=== PATIENT | male | born 1995 | race Caucasian/White ===

== ENCOUNTER 2017-03-28 01:09 | Emergency (ER) | payer OTHER ==
[~2017-03-28] VITALS: Ht 177.8 cm; Wt 83.9 kg
[~2017-03-28 01:09] MED LIST: HYDRTAB32 PO
[2017-03-28 01:14] VITALS: TEMP 36.8; Ht 177.8 cm; Wt 83.9 kg
--- NOTE | 2017-03-28 01:33 | EMERGENCY ROOM VISIT NOTE ---
History Report prepared by Dante: Abilio Calderon Under the Supervision of: Dr. Nahum Chávez M.D. First contact with patient: 01:17 Chief Complaint: ABDOMINAL PAIN Stated Complaint: PAINFUL ABDOMEN History of Present Illness The patient is a 21 year old male who presents to the Emergency Room with complaints of constant right abdominal pain beginning 3 days ago. The patient states that he was working out 3 days ago and "felt a little pop." He notes that later that night he began feeling bloated and was unable to have a bowel movement. He reports that he took a laxative 2 days ago. The patient states that he had a bowel movement following the laxative, but that the pain did not go away. He notes that his pain occasionally worsens when he stands up. He denies any CP, SOB, blood in his stool, fever, back pain, and urinary symptoms. Source of History: patient Onset: 3 days ago Position: abdomen (right) Timing: constant Modifying Factors (Worsening): other (standing up) Associated Symptoms: No fevers, No chest pain, No SOB, No back pain, No urinary symptoms Note: He denies any blood in his stool. Review of Systems See HPI for pertinent positives & negatives. A total of 10 systems reviewed and were otherwise negative. Past Medical & Surgical Medical Problems: (1) Seizure disorder (2) [place] Teeth Removal Family History Diabetes mellitus Hypertension Social History Smoking Status: Never Smoker Marital Status: single Housing Status: lives with roommate Occupation Status: student Current/Historical Medications No Active Prescriptions or Reported Meds Allergies Coded Allergies: Penicillins (Unverified Allergy, Mild, 03/28/17) Physical Exam Vital Signs Date Time Temp Pulse Resp B/P (MAP) Pulse Ox O2 Delivery O2 Flow Rate FiO2 03/28/17 03:40 96 16 129/70 97 Room Air 03/28/17 02:47 100 18 149/72 99 Room Air 03/28/17 01:14 36.8 105 18 133/78 97 Room Air Physical Exam GENERAL: Patient is uncomfortable appearing and in mild distress. HEENT: No acute trauma, normocephalic atraumatic, mucous membranes moist, no nasal congestion, no scleral icterus. NECK: No stridor, no adenopathy, no meningismus, trachea is midline. LUNGS: No dyspnea. Clear to auscultation and equal bilaterally. No wheeze, no rhonchi. HEART: Regular rate and rhythm. No murmurs, rubs, gallops appreciated. ABDOMEN: Soft, bowel sounds positive, no masses appreciated, no peritonitis, mild RLQ tenderness. BACK: No midline tenderness, no CVA tenderness EXTREMITIES: Normal motion all extremities, no cyanosis, no edema. NEUROLOGIC: Alert and oriented, no acute motor or sensory deficits, no focal weakness, cranial nerves grossly intact. SKIN: No rash, no jaundice, no diaphoresis. Medical Decision & Procedures ER Provider Diagnostic Interpretation: Radiology results and stated below per my review and radiologist interpretation: CT ABDOMEN & PELVIS With Contrast: Normal appendix. No free air or free fluid or fluid collections. No bowel obstruction. No radiopaque gallstones. No pancreatitis or pyelonephritis. No hydronephrosis. Normal caliber abdominal aorta. Radiologist: Madeleine Amaor M.D. US APPENDIX: The appendix is not visualized and appendicitis cannot be excluded based on this exam. Radiologist: Madeleine Amaro M.D. Laboratory Results 03/28/17 01:38 Red Blood Count 4.92, Mean Corpuscular Volume 87.4, Mean Corpuscular Hemoglobin 31.7, Mean Corpuscular Hemoglobin Concent 36.3, Mean Platelet Volume 10.0, Neutrophils (%) (Auto) 56.5, Lymphocytes (%) (Auto) 33.9, Monocytes (%) (Auto) 7.7, Eosinophils (%) (Auto) 1.3, Basophils (%) (Auto) 0.3, Neutrophils # (Auto) 6.28, Lymphocytes # (Auto) 3.77, Monocytes # (Auto) 0.86, Eosinophils # (Auto) 0.14, Basophils # (Auto) 0.03 03/28/17 01:38 Test 03/28/17 01:38 03/28/17 01:50 White Blood Count 11.11 K/uL (4.8-10.8) Red Blood Count 4.92 M/uL (4.7-6.1) Hemoglobin 15.6 g/dL (14.0-18.0) Hematocrit 43.0 % (42-52) Mean Corpuscular Volume 87.4 fL (80-100) Mean Corpuscular Hemoglobin 31.7 pg (25-34) Mean Corpuscular Hemoglobin Concent 36.3 g/dl (32-36) Platelet Count 369 K/uL (130-400) Mean Platelet Volume 10.0 fL (7.4-10.4) Neutrophils (%) (Auto) 56.5 % Lymphocytes (%) (Auto) 33.9 % Monocytes (%) (Auto) 7.7 % Eosinophils (%) (Auto) 1.3 % Basophils (%) (Auto) 0.3 % Neutrophils # (Auto) 6.28 K/uL (1.4-6.5) Lymphocytes # (Auto) 3.77 K/uL (1.2-3.4) Monocytes # (Auto) 0.86 K/uL (0.11-0.59) Eosinophils # (Auto) 0.14 K/uL (0-0.5) Basophils # (Auto) 0.03 K/uL (0-0.2) RDW Standard Deviation 39.1 fL (36.4-46.3) RDW Coefficient of Variation 12.2 % (11.5-14.5) Immature Granulocyte % (Auto) 0.3 % Immature Granulocyte # (Auto) 0.03 K/uL (0.00-0.02) Anion Gap 9.0 mmol/L (3-11) Est Creatinine Clear Calc Drug Dose 126.7 ml/min Estimated GFR () 131.4 Estimated GFR (Non- 113.3 BUN/Creatinine Ratio 18.4 (10-20) Calcium Level 10.0 mg/dl (8.5-10.1) Total Bilirubin 0.7 mg/dl (0.2-1) Direct Bilirubin 0.2 mg/dl (0-0.2) Aspartate Amino Transf (AST/SGOT) 57 U/L (15-37) Alanine Aminotransferase (ALT/SGPT) 43 U/L (12-78) Alkaline Phosphatase 79 U/L (45-117) Total Protein 8.3 gm/dl (6.4-8.2) Albumin 4.9 gm/dl (3.4-5.0) Lipase 145 U/L (73-393) Urine Color YELLOW Urine Appearance CLEAR (CLEAR) Urine pH 5.5 (4.5-7.5) Urine Specific [place] 1.024 (1.000-1.030) Urine Protein NEG (NEG) Urine Glucose (UA) NEG (NEG) Urine Ketones NEG (NEG) Urine Occult Blood NEG (NEG) Urine Nitrite NEG (NEG) Urine Bilirubin NEG (NEG) Urine Urobilinogen NEG (NEG) Urine Leukocyte Esterase NEG (NEG) Urine WBC (Auto) 0 /hpf (0-5) Urine RBC (Auto) 0-4 /hpf (0-4) Urine Hyaline Casts (Auto) 0 /lpf (0-5) Urine Epithelial Cells (Auto) 0-5 /lpf (0-5) Urine Bacteria (Auto) NEG (NEG) Laboratory results as reviewed by me. ED Course 0117: The patient was evaluated in room B10. A complete history and physical exam was performed. 0222: I reevaluated and updated the patient. We discussed the fact that we cannot find his appendix on US. We discussed the pros and cods of CT. He is agreeable to CT scan at this time. 0343: Reevaluated the patient. Discussed results and discharge instructions. He verbalized understanding and agreement. The patient is ready for discharge. Medical Decision Differential: Appendicitis, , MSK, Diverticulitis, UTI, Renal Colic, Bowel Obstruction, Aortic Pathology, amongst other pathologies entertained. Anxious 21 yr old male with RLQ pain last 3-4 days. Started shortly after lifting but no clear if this was onset. Labs with mild leukocytosis. Is quite TTP over RLQ without peritonitis. With unremarkable US felt CT necessary at this time to rule out appendicitis. CT unremarkable fortunately. Discussed multiple different things with patient, including no working out next week at which point he admits he was doing sit ups yesterday even though having pain. Advised against further sit ups until healed. Suspect this is MSK injury. Reviewed symptoms requiring RTED. Blood Pressure Screening Patient's blood pressure: Elevated blood pressure Blood pressure disposition: Elevated BP felt to be situational Impression Primary Impression: Right lower quadrant abdominal pain Scribe Attestation The scribe's documentation has been prepared under my direction and personally reviewed by me in its entirety. I confirm that the note above accurately reflects all work, treatment, procedures, and medical decision making performed by me. Departure Information Dispostion Home / Self-Care Prescriptions No Active Prescriptions or Reported Meds Referrals No Doctor, Assigned (PCP) Forms HOME CARE DOCUMENTATION FORM, IMPORTANT VISIT INFORMATION Patient Instructions My [facility] Additional Instructions It is likely your pain is secondary to a tear or sprain of the muscles of your abdominal wall. Avoid heavy exertion, lifting, sit-ups over the next few days to allow this to heal. Rest and keep well hydrated. Use Tylenol (acetaminophen) and Motrin (ibuprofen) as needed for pain. Follow up with your primary care provider in next 1 to 2 days if symptoms continue. Return to ED if severe worsening of pain, fevers, vomiting, passing out or other concerns.
[2017-03-28 01:47] LABS: BASO % 0.3 %; BASO ABS # 0.03 K/uL (0-0.2); EOS % 1.3 %; EOS ABS # 0.14 K/uL (0-0.5); HEMOGLOBIN 15.6 g/dL (14.0-18.0); IG# 0.03 K/uL (0.00-0.02); LYMPH % 33.9 %; LYMPH ABS # 3.77 K/uL (1.2-3.4); MEAN CELL VOLUME 87.4 fL (80-100); MEAN CORPUSCULAR HEMOGLOBIN 31.7 pg (25-34); MEAN CORPUSCULAR HGB CONC 36.3 g/dl (32-36); MONO % 7.7 %; MONO ABS # 0.86 K/uL (0.11-0.59); NEUT % 56.5 %; NEUT ABS # 6.28 K/uL (1.4-6.5); PLATELET COUNT 369 K/uL (130-400); RED CELL DISTRIBUTION WIDTH CV 12.2 % (11.5-14.5); RED CELL DISTRIBUTION WIDTH SD 39.1 fL (36.4-46.3); WHITE BLOOD COUNT 11.11 K/uL (4.8-10.8)
[2017-03-28 02:10] LABS: ALBUMIN 4.9 gm/dl (3.4-5.0); CREATININE 0.96 mg/dl (0.60-1.40); POTASSIUM 3.6 mmol/L (3.5-5.1)
[2017-03-28 02:13] LABS: TOTAL PROTEIN 8.3 gm/dl (6.4-8.2)
[2017-03-28] MEDS ORDERED: OPTIRAY 320 IV PRN (02:30)
[2017-03-28 03:40] VITALS: BP 129/70; PULSE 96; O2SAT 97
--- NOTE | 2017-03-28 06:59 | DIAGNOSTIC IMAGING REPORT ---
APPENDIX ULTRASOUND HISTORY: Right lower quadrant abdominal pain. COMPARISON: Appendix ultrasound May 15, 2011. FINDINGS: The appendix was not visualized. No mass, fluid collection or other sonographic abnormality was identified within the right lower quadrant. IMPRESSION: Nonvisualization of the appendix. This study is nondiagnostic in regards to evaluation for acute appendicitis. Electronically signed by: Chuy Davis M.D. 03/28/2017 6:57 AM Dictated Date/Time: 03/28/2017 6:57 AM
--- NOTE | 2017-03-28 07:19 | DIAGNOSTIC IMAGING REPORT ---
CT OF THE ABDOMEN AND PELVIS WITH CONTRAST CLINICAL HISTORY: Right lower quadrant abdominal pain. COMPARISON STUDY: Appendix ultrasound March 28, 2017. TECHNIQUE: Following IV administration of 92 mL of Optiray-320, axial images of the abdomen and pelvis were obtained from the lung bases to the proximal femurs. Images were reviewed in the axial, sagittal, and coronal planes. IV contrast was administered without complication. A dose lowering technique was utilized adhering to the principles of ALARA. CT DOSE: 319.01 mGy.cm FINDINGS: Lung bases are clear. The liver, spleen, adrenal glands, kidneys and pancreas are normal. There is no biliary or pancreatic ductal dilatation. There is no hydronephrosis. Caliber and wall thickness of small and large bowel are normal. The appendix is normal. There is no free fluid. There is no lymphadenopathy. No suspicious skeletal lesions are present. There is no peripancreatic or pericholecystic infiltration. IMPRESSION: No acute process within the abdomen or pelvis. Normal appendix. Electronically signed by: Chuy Davis M.D. 03/28/2017 7:17 AM Dictated Date/Time: 03/28/2017 7:12 AM
== END 2017-03-28 03:41 | disposition home or self-care (01) ==
LOC: C.EDB 01:10
DX: R10.31 Right lower quadrant pain (principal); R56.9 Unspecified convulsions; Z83.3 Family history of diabetes mellitus; Z82.49 Family history of ischemic heart disease and other diseases of the circulatory system; Z88.0 Allergy status to penicillin